=== PATIENT | male | born 1975 | race Caucasian/White ===

== ENCOUNTER 2020-06-03 15:50 | Emergency (ER) | payer BC ==
[~2020-06-03] VITALS: Ht 182.9 cm; Wt 83.9 kg
[2020-06-03 16:09] VITALS: BP_SYST 123
--- NOTE | 2020-06-03 16:13 | NUR ---
Patient to ER TENT 1 to gown for evaluation. Side rails up.
--- NOTE | 2020-06-03 16:15 | NUR ---
ER at bedside examining patient.
--- NOTE | 2020-06-03 17:00 | NUR ---
PT RECEIVING WOUND CARE. PT TOLERATING WELL.
--- NOTE | 2020-06-03 17:05 | NUR ---
Patient given written and verbal discharge instructions and verbalizes understanding. ER MD discussed with patient the results and treatment provided. Patient in stable condition. ID arm band removed. Rx of MOTRIN given. Patient educated on pain management and to follow up with PMD. Pain Scale 4. Opportunity for questions provided and answered. Medication side effect fact sheet provided.
[2020-06-03 17:15] VITALS: BP_SYST 123
== END 2020-06-03 17:15 | disposition home or self-care (01) ==
LOC: SED 15:50
DX: S90.121A Contusion of right lesser toe(s) without damage to nail, initial encounter (principal); W22.8XXA Striking against or struck by other objects, initial encounter; Y93.89 Activity, other specified; Y92.89 Other specified places as the place of occurrence of the external cause; Y99.8 Other external cause status
CPT/HCPCS: 99283